=== PATIENT | male | born 2000 | race Caucasian/White ===

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

== ENCOUNTER 2021-01-29 11:35 | Emergency (ER) | payer MEDICAID ==
[~2021-01-29] VITALS: Ht 175.3 cm; Wt 74.8 kg
[2021-01-29 12:06] VITALS: BP_SYST 123
--- NOTE | 2021-01-29 13:43 | NUR ---
Pt left without being seen by
== END 2021-01-29 13:43 | disposition left against medical advice (07) ==
LOC: SED 11:35
DX: S09.93XA Unspecified injury of face, initial encounter (principal); W18.39XA Other fall on same level, initial encounter; Y93.89 Activity, other specified; Y92.89 Other specified places as the place of occurrence of the external cause; Y99.8 Other external cause status; Z53.21 Procedure and treatment not carried out due to patient leaving prior to being seen by health care provider